=== PATIENT | male | born 1965 | race Caucasian/White ===

== ENCOUNTER 2017-05-20 20:17 | Emergency (ER) | payer BC ==
[~2017-05-20] VITALS: Ht 177.8 cm; Wt 95.2 kg
[~2017-05-20 20:17] MED LIST: ALPR.5 PO; AMPDEX30CR PO; Augmentin 875-1 EACH PO; CLON2 PO; CLONIDINE HCL0.1 MG PO; DIPATR PO; HYDACE10 PO; LEVO750 PO; LORA2 PO; OXYACE5T PO; OXYC10ER PO; OXYC10TA19 PO; OXYC80ER PO; Phenergan25 M1 PO; RISP4 PO; SACC250C PO; SOMA350 MG PO; SULTRIDS PO
[2017-05-20] MEDS ORDERED: Adderall 30 MG30 MG PO (21:31)
== END 2017-05-20 21:40 | disposition home or self-care (01) ==
LOC: ER 20:17
DX: F90.9 Attention-deficit hyperactivity disorder, unspecified type (principal); Z79.899 Other long term (current) drug therapy; F31.9 Bipolar disorder, unspecified; G40.909 Epilepsy, unspecified, not intractable, without status epilepticus
CPT/HCPCS: 99281

== ENCOUNTER 2017-06-01 20:42 | Emergency (ER) | payer BC ==
[~2017-06-01] VITALS: Ht 177.8 cm; Wt 90.7 kg
[~2017-06-01 20:42] MED LIST changes: +Adderall 30 MG30 MG PO
[2017-06-01] MEDS ORDERED: AMPDEX30CR PO (21:08)
== END 2017-06-01 21:13 | disposition home or self-care (01) ==
LOC: ER 20:42
DX: Z76.0 Encounter for issue of repeat prescription (principal); Z79.899 Other long term (current) drug therapy
CPT/HCPCS: 99281